=== PATIENT | female | born 1940 | race Caucasian/White ===

== ENCOUNTER 2019-05-03 04:38 | Inpatient (IN) | payer MEDICARE, OTHER ==
[~2019-05-03] VITALS: Ht 154.9 cm; Wt 96.8 kg
[2019-05-03 06:15] VITALS: BP 116/55
--- NOTE | 2019-05-03 06:15 | NUR ---
RAIL DETECTOR CAR OPERATOR NOTES RECEIVED REPORT FROM FABBY LEDEZMA AT [facility] AT 0450. PATIENT CAME FROM [facility]. PATIENT ARRIVED ON UNIT VIA AMBULANCE AT 0600. PATIENT IN STABLE CONDITION. A/O X 3. MAURITANIAN SPEAKING, BUT IS ABLE TO SPEAK A LITTLE MAURITIAN. ON 4L NC. NO S/S OF ACUTE RESPIRATORY DISTRESS AND NO COMPLAINTS OF PAIN AT THIS TIME. PATIENT PRESENTS WITH A LEFT LEG WOUND AND LEFT ARM WOUND. PATIENT STATES SHE FELL AT HOME. SKIN TEAR PRESENT ON LEFT BUTTOCKS. NO BELONGINGS WITH PATIENT. IV PRESENT ON RIGHT HAND, SIZE 24 & LEFT AC, SIZE 20, BOTH HEP LOCKED. VITAL SIGNS - BP: 116/55 HR: 127 RR: 20 TEMP: 98.5 SPO2: 98. AWAITING ADMISSION ORDERS. BED LOCKED, SEMI-SOLORZANO'S POSITION, SIDE RAILS X2, CALL LIGHT WITHIN REACH. WILL CONTINUE TO MONITOR.
--- NOTE | 2019-05-03 07:00 | NUR ---
MS/RN Opening Note Received patient in bed, AO x 4, able to responds all stimuli. Pt. is on oxygen via n/c, no respiratory distress observed at this time. Skin is warm to touch, kept lower bed position with elevated HOB. Call light within reach, will continue to monitor.
[2019-05-03] MEDS ORDERED: ZOLPIDEM TARTRATE 5 MG TABLET PO PRN (07:30)
[2019-05-03] MEDS ORDERED: Z GUARD REMEDY 2 OZ OINT TP PRN (07:30)
[2019-05-03] MEDS ORDERED: ACETAMINOPHEN 325 MG TABLET PO PRN (07:30)
[2019-05-03] MEDS ORDERED: MAG HYDROX/AL HYDROX/SIMETH 30 ML UDC PO PRN (07:30)
[2019-05-03] MEDS ORDERED: ONDANSETRON HCL/PF 4 MG/2 ML VIAL IVP PRN (07:30)
[2019-05-03] MEDS ORDERED: MAGNESIUM HYDROXIDE 30 ML UDC PO PRN (07:30)
--- NOTE | 2019-05-03 07:44 | NUR ---
MS RN CLOSING NOTES PATIENT AWAKE IN BED. A/O X4. ON 4L NC. NO S/S OF ACUTE RESPIRATORY DISTRESS AND NO COMPLAINTS OF PAIN AT THIS TIME. MRSA SWAB COMPLETED. PICTURES TAKEN AND PLACED IN CHART. BED LOCKED, SEMI-SOLORZANO'S POSITION, SIDE RAILS X2, CALL LIGHT WITHIN REACH. ADMISSION REPORT ENDORSED TO DAY SHIFT NURSE.
[2019-05-03 08:00] VITALS: BP 151/88
[2019-05-03] MEDS ORDERED: VALS1TAB52 PO (08:44)
[2019-05-03] MEDS ORDERED: PRED5TAB48 PO (08:44)
[2019-05-03] MEDS ORDERED: SULF500T3 PO (08:44)
[2019-05-03] MEDS ORDERED: FURO-144 PO (08:44)
[2019-05-03] MEDS ORDERED: TYL2T PO (08:44)
[2019-05-03] MEDS ORDERED: CHOL500052 PO (08:44)
[2019-05-03] MEDS ORDERED: VITA1TAB20 PO (08:44)
[2019-05-03] MEDS ORDERED: METO-295 PO (08:44)
[2019-05-03] MEDS ORDERED: METH2.5T PO (08:44)
[2019-05-03] MEDS ORDERED: ESOM40CA PO (08:44)
[2019-05-03] MEDS ORDERED: HYDR-4384 PO (08:44)
[2019-05-03] MEDS ORDERED: ESCI20TA PO (08:44)
[2019-05-03 08:54] LABS: BASOPHILS % (AUTO) 0.1 % (0.0-2.0); EOSINOPHILS % (AUTO) 0.1 % (0.0-6.0); HEMATOCRIT 24 % (33-45); HEMOGLOBIN 7.6 g/dL (11.5-14.8); LYMPHOCYTES # (AUTO) 0.2 /CMM (0.8-4.8); LYMPHOCYTES % (AUTO) 2.4 % (20.0-44.0); MEAN CORPUSCULAR HGB CONC 33 g/dl (31.0-36.0); MEAN CORPUSCULAR VOLUME 92 fL (82-100); MONOCYTES # (AUTO) 0.1 /CMM (0.1-1.30); MONOCYTES % (AUTO) 0.8 % (2.0-12.0); NEUTROPHILS % (AUTO) 96.6 % (43.0-81.0); PLATELET COUNT (AUTO) 233 /CMM (150-450); RED BLOOD CELL COUNT(AUTO) 2.57 MIL/uL (4.0-5.2); WHITE BLOOD COUNT (AUTO) 7.2 K/uL (4.3-11.0)
[2019-05-03 09:10] LABS: CALCIUM, SERUM 8.6 mg/dL (8.5-10.1); CARBON DIOXIDE 24 mmol/L (21-32); CHLORIDE 101 mmol/L (98-107); CREATININE 4.6 mg/dL (0.6-1.3); GLUCOSE 206 mg/dL (74-106); MAGNESIUM 2.8 mg/dL (1.8-2.4); POTASSIUM 6.1 mmol/L (3.5-5.1); SODIUM SERUM 136 mmol/L (136-145); UREA NITROGEN, BLOOD 63 mg/dL (7-18)
[2019-05-03] MEDS ORDERED: LEVOFLOXACIN 500 MG /D5W 100ML 500 MG in PREMIX 1 EA IV SCH (11:00)
[2019-05-03] MEDS ORDERED: FUROSEMIDE 100 MG/10 ML VIAL IV ONE (11:30)
[2019-05-03] MEDS ORDERED: METOCLOPRAMIDE HCL 10 MG TABLET PO PRN (12:30)
[2019-05-03] MEDS ORDERED: IV NS 0.9% 1,000 ML IV SCH (13:00)
[2019-05-03] MEDS ORDERED: SODIUM POLYSTYRENE SULFONATE 15 G/60 ML BOTTLE PO ONE (13:00)
[2019-05-03] MEDS ORDERED: FEE PK DOSING 1 MIN EA MC ONE (13:19)
[2019-05-03 13:44] LABS: ABG BASE EXCESS -4.5 mmol/L; ABG PCO2 32.6 mmHg (35.0-45.0); ABG PH 7.401 (7.350-7.450); ABG PO2 83.4 mmHg (75.0-100.0); AaDO2 164.3 mmHg; COHb 0.8 % (0.5-1.5); MetHb 1.2 % (0.0-1.5); O2Hb 93.1 % (94.0-97.0); SITE, ABG Left Brachial; VENT MODE, BG Nasal Cannula
[2019-05-03] MEDS: PIPERACILLIN /TAZOBACTAM 2.25 G in IV D5W 50 ML IV SCH ×2 (14:19→18:17)
[2019-05-03] MEDS ORDERED: VANCOMYCIN 1.25 GM in IV D5W 250 ML IV SCH (15:00)
[2019-05-03 16:00] VITALS: BP 130/74
[2019-05-03] MEDS: IPRATROPIUM NEB FS 0.5 MG/2.5 ML AMPUL.NEB NEB SCH ×2 (16:30→20:01)
[2019-05-03] MEDS: ALBUTEROL HALF STRENGTH 1.25 MG/3 ML VIAL.NEB NEB SCH ×2 (16:30→20:01)
[2019-05-03] MEDS: SULFASALAZINE 500 MG TABLET PO SCH (17:10)
[2019-05-03] MEDS: HYDROCODONE/APAP 5/325MG 1 EACH TABLET PO PRN (18:18)
--- NOTE | 2019-05-03 18:30 | NUR ---
MS/RN Closing note Patient in bed, done for US lower extremities and c/o generalized pain, given Narco 5/325mg. Skin is warm to touch, clean/dry. Resp. even and unlabored. Pt is on ATB but no s/s of adverse reaction observed. Call light within reach, will endorse night nurse.
--- NOTE | 2019-05-03 19:28 | NUR ---
MS RN OPENING NOTES Patient received resting in bed, awake a/o x4 Bengali speaking. Patient on 2L O2 via NC breathing even and unlabored, no SOB note. No signs of acute distress and no current complaints of pain or discomfort. IV located on L AC #20 patent and intact. Safety precautions in place with bed in lowest position, call light within reach, side rails up x2, and breaks on. Will continue to monitor.
[2019-05-03 20:00] VITALS: BP 116/63
--- NOTE | 2019-05-03 23:18 | NUR ---
MS RN NOTES MD NOTIFIED ABOUT ULTRASOUND RESULTS OF DVT IN MID RIGHT SUPERFICIAL; FEMORAL VEIN. WILL CONTINUE TO MONITOR.
[2019-05-03] MEDS: MEROPENEM 500 MG in IV NS 0.9% 50 ML IV SCH (23:22)
[2019-05-03] MEDS ORDERED: HEPARIN INFUSION/D5W 500 ML IV PRN (23:30)
--- NOTE | 2019-05-04 00:10 | NUR ---
MS RN NOTES MD ORDERED HEPARIN DRIP, CBC ORDERED STAT AND FECAL OCCULT STOOL. WILL CONTINUE TO MONITOR.
[2019-05-04 01:00] LABS: BASOPHILS % (AUTO) 0.1 % (0.0-2.0); LYMPHOCYTES # (AUTO) 0.5 /CMM (0.8-4.8); LYMPHOCYTES % (AUTO) 7.1 % (20.0-44.0); MEAN CORPUSCULAR HGB CONC 33 g/dl (31.0-36.0); MEAN CORPUSCULAR VOLUME 91 fL (82-100); MONOCYTES # (AUTO) 0.3 /CMM (0.1-1.30); MONOCYTES % (AUTO) 4.4 % (2.0-12.0); NEUTROPHILS # (AUTO) 6.2 /CMM (1.8-8.9); NEUTROPHILS % (AUTO) 88.4 % (43.0-81.0); PLATELET COUNT (AUTO) 225 /CMM (150-450); RED BLOOD CELL COUNT(AUTO) 2.23 MIL/uL (4.0-5.2)
[2019-05-04 01:05] LABS: HEMATOCRIT 20 % (33-45)
[2019-05-04 01:07] LABS: HEMOGLOBIN 6.7 g/dL (11.5-14.8)
[2019-05-04] MEDS: IPRATROPIUM NEB FS 0.5 MG/2.5 ML AMPUL.NEB NEB SCH ×4 (01:16→19:51)
[2019-05-04] MEDS: ALBUTEROL HALF STRENGTH 1.25 MG/3 ML VIAL.NEB NEB SCH ×4 (01:16→19:51)
--- NOTE | 2019-05-04 01:19 | NUR ---
MS RN NOTES CALLED BY LAB ABOUT CRITICAL VALUE OF HGB 6.7 REPORTED BY LAI. LINDY NOTIFIED- CANCELLED HEPARIN DRIP, HOLD ANTICOAGULANTS, CONTINUE TO MONITOR AND SEE IF LABS IMPROVE IN THE MORNING.
[2019-05-04 01:31] LABS: LYMPHOCYTES % (MANUAL) 4 % (16-48); NEUTROPHILS % (MANUAL) 94 (42-76)
[2019-05-04 01:32] LABS: MONOCYTES % (MANUAL) 2 % (0-11.0)
[2019-05-04] MEDS: PANTOPRAZOLE 40 MG VIAL IV SCH ×2 (04:05→22:01)
--- NOTE | 2019-05-04 06:43 | NUR ---
MS RN CLOSING NOTES PATIENT IS CURRENTLY RESTING IN BED A/O X4, LITHUANIAN SPEAKING BUT ABLE TO MAKE NEEDS KNOWN. PATIENT ON 3L O2 VIA NC WITH BREATHIGN EVEN AND UNLABORED. NO SIGNS OF ACUTE DISTRESS. NO COMPLAINTS OF PAIN OR DISCOMFORT. IV LOCATED ON R HAND #24 AND L AC #20, PATENT AND INTACT. ALL NEEDS WERE MET THROUGHOUT THE NIGHT. PATIENT WAS KEPT CLEAN AND DRY. SAFETY PRECAUTIONS IN PLACE WITH BED IN LOWEST POSITION, CALL LIGHT WITHIN REACH, BREAKS ON, AND SIDE RAILS UP X2. WILL ENDORSE TO ONCOMING SHIFT ABOUT BIANCA.
[2019-05-04 06:53] LABS: CHOLESTEROL 116 mg/dL (<200); CREATINE KINASE, TOTAL 68 U/L (26-192); HDL CHOLESTEROL 42 mg/dL (40-60); LDL 70 mg/dL (0-99); TRIGLYCERIDES 84 mg/dL (30-150)
[2019-05-04 07:00] LABS: ALANINE AMINOTRANSFERASE 15 U/L (12-78); ALBUMIN 2.2 g/dL (3.4-5.0); ALKALINE PHOSPHATASE 50 U/L (46-116); ASPARTATE AMINOTRANSFERASE 17 U/L (15-37); BILIRUBIN,TOTAL 0.3 mg/dL (0.2-1.0); CARBON DIOXIDE 25 mmol/L (21-32); CHLORIDE 102 mmol/L (98-107); CREATININE 4.7 mg/dL (0.6-1.3); GLUCOSE 141 mg/dL (74-106); MAGNESIUM 2.9 mg/dL (1.8-2.4); PHOSPHORUS 7.7 mg/dL (2.5-4.9); POTASSIUM 5.2 mmol/L (3.5-5.1); SODIUM SERUM 138 mmol/L (136-145); TOTAL PROTEIN, SERUM 5.9 g/dL (6.4-8.2); UREA NITROGEN, BLOOD 71 mg/dL (7-18)
[2019-05-04 07:13] LABS: BASOPHILS % (AUTO) 0.1 % (0.0-2.0); LYMPHOCYTES # (AUTO) 0.7 /CMM (0.8-4.8); LYMPHOCYTES % (AUTO) 8.5 % (20.0-44.0); MEAN CORPUSCULAR HGB CONC 33 g/dl (31.0-36.0); MEAN CORPUSCULAR VOLUME 91 fL (82-100); MONOCYTES # (AUTO) 0.5 /CMM (0.1-1.30); MONOCYTES % (AUTO) 5.7 % (2.0-12.0); NEUTROPHILS # (AUTO) 7.4 /CMM (1.8-8.9); NEUTROPHILS % (AUTO) 85.7 % (43.0-81.0); PLATELET COUNT (AUTO) 222 /CMM (150-450); RED BLOOD CELL COUNT(AUTO) 2.09 MIL/uL (4.0-5.2); WHITE BLOOD COUNT (AUTO) 8.6 K/uL (4.3-11.0)
--- NOTE | 2019-05-04 07:17 | NUR ---
Nurse Notes: report from the night nurse Deanna Giles RN, received patient resting in bed, c/o pain 07/29. In no respiratory distress.
[2019-05-04] MEDS ORDERED: PANTOPRAZOLE 40 MG TABLET.DR PO SCH (07:30)
[2019-05-04 07:40] LABS: HEMATOCRIT 19 % (33-45); HEMOGLOBIN 6.2 g/dL (11.5-14.8)
[2019-05-04 08:00] VITALS: BP 111/69
[2019-05-04] MEDS ORDERED: ACETAMINOPHEN 325 MG TABLET PO PRN (08:00)
[2019-05-04] MEDS ORDERED: diphenhydrAMINE HCL 50 MG/ML VIAL IV PRN (08:00)
[2019-05-04 08:24] LABS: LYMPHOCYTES % (MANUAL) 8 % (16-48); MONOCYTES % (MANUAL) 9 % (0-11.0); NEUTROPHILS % (MANUAL) 83 (42-76)
[2019-05-04] MEDS: SULFASALAZINE 500 MG TABLET PO SCH (09:00)
[2019-05-04] MEDS ORDERED: METHOTREXATE SODIUM (2.5MG) 2.5 MG TABLET PO SCH ×2 (09:00)
--- NOTE | 2019-05-04 09:20 | NUR ---
Nurse Notes: type and cross just completed, phlebotomuist just aishwarya the blood. patient was stuck twice, waiting for unit of PRBCs to be processed.
[2019-05-04] MEDS: HYDROCODONE/APAP 5/325MG 1 EACH TABLET PO PRN (09:56)
[2019-05-04] MEDS: ESCITALOPRAM OXALATE (10 MG) 10 MG TABLET PO SCH (09:57)
[2019-05-04] MEDS: predniSONE 5 MG TABLET PO SCH (09:57)
[2019-05-04] MEDS: VITAMIN B COMP W-C 1 TAB TABLET PO SCH (09:57)
--- NOTE | 2019-05-04 11:21 | NUR ---
WOUND CARE CONSULT: PT PRESENTS WITH OPEN BLISTER TO LEFT BUTTOCK AND WOUNDS, DISCOLORED AREAS TO LEFT LOWER EXTREMITY, PRESENT ON ADMISSION. RECOMMENDATIONS MADE FOR SKIN PROTECTION. DISCUSSED WITH NURSING STAFF. RECOMMEND DPM AND SURGICAL CONSULTS. DR ROMAN NOTIFIED OF CONSULT REQUESTS. PT IS ON VALE ISOFLEX LOW AIRLOSS BED. WILL SEE PRN. MENDEZ IN AGREEMENT WITH PLAN OF CARE. CURRENT ELE SCORE IS 16. Addendum: 05/04/19 at 1123 by SHERRY STEWARD WNDNU Amended: Links added.
[2019-05-04 12:45] VITALS: BP 105/90
[2019-05-04 13:10] LABS: APPEARANCE,URINE SL CLOUDY (CLEAR); BILIRUBIN,URINE NEGATIVE (NEGATIVE); BLOOD, URINE LARGE Ery/uL (NEGATIVE); COLOR,URINE YELLOW (YELLOW); KETONES,URINE NEGATIVE (NEGATIVE); LEUKOCYTE ESTERASE ,URINE NEGATIVE (NEGATIVE); NITRITE, URINE NEGATIVE (NEGATIVE); PROTEIN,URINE 100 mg/dl (NEGATIVE); UGLUCOSE NEGATIVE (NEGATIVE); UROBILINOGEN,URINE 0.2 EU/dL (0.2)
[2019-05-04 13:21] LABS: CREATININE, URINE 51.3 MG/DL (30.0-125.0); URINE TOTAL PROTEIN 104.7 mg/dL (0-11.9)
[2019-05-04 13:23] LABS: BACTERIA,URINE Moderate /HPF (None Seen); SQUAMOUS EPITHELIAL CELL,UR Moderate /HPF (None Seen)
[2019-05-04 13:24] LABS: WBC,URINE 0-2 /HPF (0-3)
[2019-05-04 13:37] LABS: EOSINOPHIL,URINE None Seen
--- NOTE | 2019-05-04 13:50 | NUR ---
Nurse Notes: Micro biology stated there is no sputum in lab to run gram stain. patient needs to give specimen. dry cough, will give patient sputum container.
[2019-05-04 14:26] VITALS: BP 120/65
[2019-05-04] MEDS: SILVER SULFADIAZINE 50 GM JAR TP SCH (14:54)
[2019-05-04] MEDS: SILVER SULFADIAZINE CREAM 25 GM TUBE TP SCH (14:55)
--- NOTE | 2019-05-04 15:15 | NUR ---
Nurse Notes: Sulfasalazine 50 mg was not in the omnicell, also check patient cassette. Pharmacy was called, stated it in the [facility]. will enter dose for today as single dose.
[2019-05-04 15:50] LABS: OCCULT BLOOD STOOL NEGATIVE (NEGATIVE)
[2019-05-04 16:00] VITALS: BP 120/68
[2019-05-04] MEDS ORDERED: SULFASALAZINE 500 MG TABLET PO ONE (16:30)
--- NOTE | 2019-05-04 16:58 | NUR ---
Nurse Notes: Kevin Hogan called and asking old record Kevin Hogan [facility], spoke with the Nursing Watch Dial Maker, will fax the old records at [facility], fax number given to her. patient was at [facility] for 6 days
--- NOTE | 2019-05-04 19:25 | NUR ---
MS RN OPENING NOTES RECEIVED PATIENT FROM MORNING SHIFT ALERT AND ORIENTED X 3. FAMILY ON BEDSIDE. VERBALLY RESPONSIVE CITIZEN OF [place] SPEAKING AND ABLE TO FOLLOW DIRECTIONS. BREATHING REGULAR AND UNLABORED ON OXYGEN AT 2L/min VIA NASAL CANNULA. LEFT AC G20 AND RIGHT HAND G24 IV LINES PATENT AND INTACT, FLUSHING/INFUSING WELL WITH NO BLEEDING OR S/S OF INFECTION/INFILTRATION NOTED. NO COMPLAINTS OF PAIN/DISCOMFORT REPORTED OF THE TIME. BED LOW AND LOCKED ON SEMI FOWLERS POSITION. CALL LIGHT IN REACH. WILL CONTINUE TO MONITOR.
--- NOTE | 2019-05-04 19:30 | NUR ---
Nurse Notes: report given to day [facility] nurse Tasneem Summers RN. LYUBOV munroe coming to do the VQ scan. Consent for Pulmonary Perfusion with contrast and without contrast signed by patient, granddaughter Kimi spoke to Dr Almaraz regarding chest scan.
[2019-05-04 19:42] LABS: THYROID STIMULATING HORMONE 11.986 uIU/mL (0.358-3.74)
[2019-05-04] MEDS: FOLIC ACID 1 MG TABLET PO SCH (19:42)
--- NOTE | 2019-05-04 20:20 | NUR ---
MS RN NOTES PICKED-UP BY VANESSA FROM [facility]PT. FOR V/Q SCAN TO R/O PULMONARY EMBOLISM. REMAINED ALERT AND ORIENTED X 3 WITH STABLE VITAL SIGNS LATEST SP02 95%. TRANSFERRED VIA HOSPITAL BED.
[2019-05-04 20:43] VITALS: BP 128/70
[2019-05-04 22:00] VITALS: BP 128/70
--- NOTE | 2019-05-04 22:00 | NUR ---
MS RN NOTES CAME BACK FROM VQ SCAN WITH STABLE CONDITION. REMAINED ALERT AND ORIENTED X 3. NO COMPLAINTS OF PAIN/DISCOMFORT REPORTED. WILL CONTINUE TO MONITOR.
[2019-05-05] MEDS: MEROPENEM 500 MG in IV NS 0.9% 50 ML IV SCH (00:33)
[2019-05-05] MEDS: IPRATROPIUM NEB FS 0.5 MG/2.5 ML AMPUL.NEB NEB SCH ×4 (01:47→20:19)
[2019-05-05] MEDS: ALBUTEROL HALF STRENGTH 1.25 MG/3 ML VIAL.NEB NEB SCH ×4 (01:47→20:19)
--- NOTE | 2019-05-05 06:30 | NUR ---
MS RN CLOSING NOTES PATIENT IN BED ALERT AND ORIENTED X 3.VERBALLY RESPONSIVE GEORGIAN/[place] LANK[place] SPEAKING AND ABLE TO FOLLOW DIRECTIONS. BREATHING REGULAR AND UNLABORED ON OXYGEN AT 2L/min VIA NASAL CANNULA. LEFT AC G20 AND RIGHT HAND G24 IV LINES PATENT AND FLUSHING WELL. NO COMPLAINTS OF PAIN/DISCOMFORT REPORTED THE WHOLE SHIFT. WOUND TREATMENTS PROVIDED. ON IV ATB WITH NO ADVERSE REACTIONS NOTED. BED LOW AND LOCKED ON SEMI FOWLERS POSITION. CALL LIGHT IN REACH. WILL ENDORSE TO MORNING SHIFT FOR BIANCA.
--- NOTE | 2019-05-05 07:30 | NUR ---
RN OPENING NOTES RECEIVED PATIENT IN BED RESTING. NOT IN ANY FORM OF DISTRESS. NO SOB. NO S/S OF PAIN OR DISCOMFORT AT THIS TIME. IV ACCESS INTACT AND PATENT. KEPT PATIENT SAFE AND COMFORTABLE. BED IN LOW/LOCKED POSITION SIDERAILS UPX2, CALL LIGHT IN REACH. WILL CONT TO MONITOR ACCORDINGLY.
[2019-05-05 07:41] LABS: BASOPHILS % (AUTO) 0.3 % (0.0-2.0); EOSINOPHILS % (AUTO) 1.3 % (0.0-6.0); HEMATOCRIT 22 % (33-45); LYMPHOCYTES # (AUTO) 1.3 /CMM (0.8-4.8); LYMPHOCYTES % (AUTO) 13.2 % (20.0-44.0); MEAN CORPUSCULAR HGB CONC 32 g/dl (31.0-36.0); MEAN CORPUSCULAR VOLUME 92 fL (82-100); MONOCYTES # (AUTO) 0.7 /CMM (0.1-1.30); MONOCYTES % (AUTO) 6.8 % (2.0-12.0); NEUTROPHILS # (AUTO) 7.9 /CMM (1.8-8.9); NEUTROPHILS % (AUTO) 78.4 % (43.0-81.0); PLATELET COUNT (AUTO) 254 /CMM (150-450); RED BLOOD CELL COUNT(AUTO) 2.34 MIL/uL (4.0-5.2)
[2019-05-05 08:00] VITALS: BP 138/70
[2019-05-05 08:03] LABS: CREATINE KINASE, TOTAL 70 U/L (26-192)
[2019-05-05] MEDS: SULFASALAZINE 500 MG TABLET PO SCH (08:27)
[2019-05-05] MEDS: ESCITALOPRAM OXALATE (10 MG) 10 MG TABLET PO SCH (08:27)
[2019-05-05] MEDS: FOLIC ACID 1 MG TABLET PO SCH (08:27)
[2019-05-05] MEDS: VITAMIN B COMP W-C 1 TAB TABLET PO SCH (08:27)
[2019-05-05] MEDS: predniSONE 5 MG TABLET PO SCH (08:27)
[2019-05-05] MEDS: SILVER SULFADIAZINE CREAM 25 GM TUBE TP SCH (08:31)
[2019-05-05] MEDS: PANTOPRAZOLE 40 MG VIAL IV SCH ×2 (08:31→21:42)
[2019-05-05 08:53] LABS: ALANINE AMINOTRANSFERASE 14 U/L (12-78); ALBUMIN 2.3 g/dL (3.4-5.0); ALKALINE PHOSPHATASE 52 U/L (46-116); ASPARTATE AMINOTRANSFERASE 21 U/L (15-37); BILIRUBIN,TOTAL 0.3 mg/dL (0.2-1.0); CALCIUM, SERUM 7.6 mg/dL (8.5-10.1); CARBON DIOXIDE 22 mmol/L (21-32); CHLORIDE 101 mmol/L (98-107); CREATININE 4.7 mg/dL (0.6-1.3); GLUCOSE 95 mg/dL (74-106); MAGNESIUM 2.8 mg/dL (1.8-2.4); POTASSIUM 5.1 mmol/L (3.5-5.1); SODIUM SERUM 138 mmol/L (136-145); TOTAL PROTEIN, SERUM 6.1 g/dL (6.4-8.2); UREA NITROGEN, BLOOD 69 mg/dL (7-18)
[2019-05-05 09:08] LABS: PHOSPHORUS 8.9 mg/dL (2.5-4.9)
[2019-05-05] MEDS ORDERED: EPOETIN ALFA (20,000 UNIT) 20,000 UNIT/ML VIAL SQ ONE (12:00)
[2019-05-05] MEDS: SEVELAMER CARBONATE 800 MG TABLET PO SCH ×2 (12:37→18:01)
[2019-05-05] MEDS ORDERED: VANCOMYCIN 1.25 GM in IV D5W 250 ML IV SCH (15:00)
[2019-05-05 16:00] VITALS: BP 138/64
--- NOTE | 2019-05-05 19:29 | NUR ---
RN CLOSING NOTES PATIENT IN STABLE CONDITION. ALL NEEDS ATTENDED AND PROVIDED. ALL DUE MEDS GIVEN ORDERED. TURNED AND REPOSITIONED EVERY 2HRS NEEDED. KEPT PATIENT SAFE AND COMFORTABLE. BED IN LOW/LOCKED POSITION, SIDERAILS UPX2,C ALL LIGHT IN REACH. ENDORSED TO NIGHT RN FOR BIANCA.
--- NOTE | 2019-05-05 19:30 | NUR ---
MS RN NOTES RECEIVED ON BED A/O X3,SAO TOMEAN SPEAKING,OBESE,NO IV ACCESS, HARD STICK,NOTED LEFT LOWER ARM IN CAST DUE TO FRACTURE.WITH SLIGHT REDNESS ON RIGHT LEG,POSITIVE DVT ON RIGHT FEMORAL VEIN.WILL CONTINUE TO MONITOR STATUS.
--- NOTE | 2019-05-05 19:45 | NUR ---
MS RN NOTES NEW SALINE LOCK INSERTED ON RIGHT FORE ARM #20,IV ABX INFUSING AT THIS TIME.
[2019-05-05 20:00] VITALS: BP 115/67
--- NOTE | 2019-05-06 | NUR ---
MS RN NOTES IV FERNANDA LEE,INFUSING VIA IV PUMP ON RIGHT FOREARM SALINE LOCK
[2019-05-06] MEDS: MEROPENEM 500 MG in IV NS 0.9% 50 ML IV SCH ×2 (00:08→23:49)
[2019-05-06] MEDS: IPRATROPIUM NEB FS 0.5 MG/2.5 ML AMPUL.NEB NEB SCH ×4 (02:23→20:16)
[2019-05-06] MEDS: ALBUTEROL HALF STRENGTH 1.25 MG/3 ML VIAL.NEB NEB SCH ×4 (02:23→20:16)
[2019-05-06 06:07] LABS: *SPE A/G RATIO 0.8 (0.7-1.7); *SPE ALBUMIN 2.4 g/dL (2.9-4.4); *SPE ALPHA-1-GLOBULIN 0.4 g/dL (0.0-0.4); *SPE ALPHA-2-GLOBULIN 0.7 g/dL (0.4-1.0); *SPE BETA GLOBULIN 0.8 g/dL (0.7-1.3); *SPE M-SPIKE 0.6 g/dL (Not Observed); *SPEGAMMA GLOBULIN 1.1 g/dL (0.4-1.8)
--- NOTE | 2019-05-06 06:33 | NUR ---
MS RN NOTES SLEPT WELL.IV ABX TOLERATED WELL.NO DISTRESS.WILL ENDORSE TO DAY NURSE FOR BIANCA.
[2019-05-06 08:00] VITALS: BP 122/70
--- NOTE | 2019-05-06 08:00 | NUR ---
ms rn received on bed, awake,alert,oriented x2-3,not in any form of distress,respirations even and unlabored,no sob noted, lungs are clear,abdomen soft,positive bowel sounds,denies pain at this time,all needs attended.
[2019-05-06 08:30] LABS: CALCIUM, SERUM 7.5 mg/dL (8.5-10.1); CARBON DIOXIDE 25 mmol/L (21-32); CHLORIDE 101 mmol/L (98-107); CREATININE 4.6 mg/dL (0.6-1.3); GLUCOSE 95 mg/dL (74-106); POTASSIUM 4.8 mmol/L (3.5-5.1); SODIUM SERUM 137 mmol/L (136-145); UREA NITROGEN, BLOOD 66 mg/dL (7-18)
[2019-05-06] MEDS: SILVER SULFADIAZINE CREAM 25 GM TUBE TP SCH (09:00)
--- NOTE | 2019-05-06 09:50 | NUR ---
ms castillo breakfast served,due meds given,tolerated well.
--- NOTE | 2019-05-06 10:00 | NUR ---
ms anna was seen by michael fulton/ orders made and carried out.
[2019-05-06] MEDS: SEVELAMER CARBONATE 800 MG TABLET PO SCH ×3 (10:21→18:43)
[2019-05-06] MEDS: PANTOPRAZOLE 40 MG VIAL IV SCH ×2 (10:21→21:03)
[2019-05-06] MEDS: FOLIC ACID 1 MG TABLET PO SCH (10:22)
[2019-05-06] MEDS: ESCITALOPRAM OXALATE (10 MG) 10 MG TABLET PO SCH (10:22)
[2019-05-06] MEDS: VITAMIN B COMP W-C 1 TAB TABLET PO SCH (10:22)
[2019-05-06] MEDS: SILVER SULFADIAZINE 50 GM JAR TP SCH (10:26)
[2019-05-06] MEDS: SULFASALAZINE 500 MG TABLET PO SCH (12:39)
[2019-05-06] MEDS: predniSONE 5 MG TABLET PO SCH (12:39)
--- NOTE | 2019-05-06 14:50 | NUR ---
ms rn texted michael fulton due to patient is degrading w/ orders made and carried out.
[2019-05-06] MEDS: HYDROCODONE/APAP 5/325MG 1 EACH TABLET PO PRN ×2 (15:06→23:09)
[2019-05-06 16:00] VITALS: BP 134/52
--- NOTE | 2019-05-06 18:00 | NUR ---
ms rn [id number] abg result, normal.
[2019-05-06 18:03] LABS: ABG OXYGEN SATURATION 96.5 % (92.0-98.5); ABG PCO2 44.9 mmHg (35.0-45.0); ABG PH 7.342 (7.350-7.450); ABG PO2 99.3 mmHg (75.0-100.0); AaDO2 76.3 mmHg; COHb 0.1 % (0.5-1.5); MetHb 0.7 % (0.0-1.5); O2Hb 95.7 % (94.0-97.0); SITE, ABG Right Radial; VENT MODE, BG 3LPM VIA NC
--- NOTE | 2019-05-06 18:05 | NUR ---
ms rn on bed, no distress noted.
--- NOTE | 2019-05-06 19:30 | NUR ---
MS RN NOTES ON BED A/O X3,BREATHING NON LABORED,O2 IN USED AT 2L/NC,SALINE LOCK RIGHT FOREARM INTACT AND PATENT.LEFT LOWER DRESSING INTACT AND PATENT.C/O ABDOMINAL CRAMPS,WAS MEDICATED BY DAY NURSE WITH MILK OF MAGNESIA FOR CONSTIPATION.CALL LIGHT IN REACH,NEEDS ANTICIPATED.
[2019-05-06 20:00] VITALS: BP 134/68
--- NOTE | 2019-05-06 23:09 | NUR ---
MS RN NOTES PAIN MANAGEMENT C/O PAIN LEFT LOWER ABDOMEN,6/10 ON PAIN SCALE.MEDICATED WITH NORCO 5/325MG,1 TAB PO ORDERED.
--- NOTE | 2019-05-07 01:00 | NUR ---
MS RN NOTES SLEEPING,KEPT WARM AND COMFORTABLE.
[2019-05-07] MEDS: IPRATROPIUM NEB FS 0.5 MG/2.5 ML AMPUL.NEB NEB SCH ×3 (02:12→13:31)
[2019-05-07] MEDS: ALBUTEROL HALF STRENGTH 1.25 MG/3 ML VIAL.NEB NEB SCH ×3 (02:12→13:31)
--- NOTE | 2019-05-07 06:23 | NUR ---
MS RN NOTES SLEPT WELL WITH INTERVALS.PAIN MANAGEMENT EFFECTIVE.IN NO ACUTE DISTRESS.WILL ENDORSE TO DAY NURSE FOR BIANCA.
[2019-05-07 07:06] LABS: *SPE A/G RATIO 0.8 (0.7-1.7); *SPE ALBUMIN 2.5 g/dL (2.9-4.4); *SPE ALPHA-1-GLOBULIN 0.4 g/dL (0.0-0.4); *SPE ALPHA-2-GLOBULIN 0.7 g/dL (0.4-1.0); *SPE BETA GLOBULIN 0.7 g/dL (0.7-1.3); *SPE M-SPIKE 0.6 g/dL (Not Observed); *SPEGAMMA GLOBULIN 1.2 g/dL (0.4-1.8)
[2019-05-07 08:00] VITALS: BP 129/90
--- NOTE | 2019-05-07 08:00 | NUR ---
m/s business account leader: initial assessment received pt in bed awake, a/ox3; lebanese speaking only. no c/o pain or any discomfort. instructed to call for assistance.
[2019-05-07] MEDS: ESCITALOPRAM OXALATE (10 MG) 10 MG TABLET PO SCH (08:08)
[2019-05-07] MEDS: VITAMIN B COMP W-C 1 TAB TABLET PO SCH (08:08)
[2019-05-07] MEDS: predniSONE 5 MG TABLET PO SCH (08:08)
[2019-05-07] MEDS: SULFASALAZINE 500 MG TABLET PO SCH (08:08)
[2019-05-07] MEDS: FOLIC ACID 1 MG TABLET PO SCH (08:08)
[2019-05-07] MEDS: SEVELAMER CARBONATE 800 MG TABLET PO SCH ×2 (08:09→13:28)
[2019-05-07] MEDS: SILVER SULFADIAZINE CREAM 25 GM TUBE TP SCH (08:10)
[2019-05-07] MEDS: SILVER SULFADIAZINE 50 GM JAR TP SCH (08:12)
[2019-05-07 08:28] LABS: BASOPHILS % (AUTO) 0.3 % (0.0-2.0); CALCIUM, SERUM 8.2 mg/dL (8.5-10.1); CARBON DIOXIDE 26 mmol/L (21-32); CHLORIDE 103 mmol/L (98-107); CREATININE 4.4 mg/dL (0.6-1.3); GLUCOSE 96 mg/dL (74-106); HEMATOCRIT 23 % (33-45); HEMOGLOBIN 7.5 g/dL (11.5-14.8); LYMPHOCYTES # (AUTO) 1.2 /CMM (0.8-4.8); LYMPHOCYTES % (AUTO) 11.2 % (20.0-44.0); MAGNESIUM 2.9 mg/dL (1.8-2.4); MEAN CORPUSCULAR HGB CONC 32 g/dl (31.0-36.0); MEAN CORPUSCULAR VOLUME 92 fL (82-100); MONOCYTES # (AUTO) 0.5 /CMM (0.1-1.30); MONOCYTES % (AUTO) 4.7 % (2.0-12.0); NEUTROPHILS % (AUTO) 80.8 % (43.0-81.0); PHOSPHORUS 7.5 mg/dL (2.5-4.9); PLATELET COUNT (AUTO) 228 /CMM (150-450); POTASSIUM 5.4 mmol/L (3.5-5.1); RED BLOOD CELL COUNT(AUTO) 2.54 MIL/uL (4.0-5.2); SODIUM SERUM 139 mmol/L (136-145); UREA NITROGEN, BLOOD 61 mg/dL (7-18); WHITE BLOOD COUNT (AUTO) 11.1 K/uL (4.3-11.0)
[2019-05-07] MEDS: PANTOPRAZOLE 40 MG VIAL IV SCH (09:06)
--- NOTE | 2019-05-07 10:00 | NUR ---
m/s fine grade operator: notes am care rendered by risk lead. tx done to left buttock wound, wound improving. wound care rendered to left leg/knee area.
[2019-05-07] MEDS ORDERED: SODIUM POLYSTYRENE SULFONATE 15 G/60 ML BOTTLE PO ONE (13:30)
--- NOTE | 2019-05-07 13:35 | NUR ---
m/s stretcher leveler operator: notes daughter here visiting and informed her that pt is being discharge today with home health. daughter wants ambulance to take her. jackelyn (case management) notified and made aware. daughter provided the address and spoke to jackelyn. pt made aware. pt c/o itchiness. dr. rodriguez notified with one time order of benadry 25mg po. order read back and carried out. will continue to monitor.
[2019-05-07] MEDS ORDERED: VANCOMYCIN 1.25 GM in IV D5W 250 ML IV SCH (14:00)
[2019-05-07] MEDS ORDERED: diphenhydrAMINE HCL 25 MG CAPSULE PO ONE (14:00)
--- NOTE | 2019-05-07 14:00 | NUR ---
m/s cooker soda: notes wound care rendered to left lower leg/calf and medial knee area. also tx done to left buttock wound. will continue to monitor.
--- NOTE | 2019-05-07 15:00 | NUR ---
m/s energy projects lead: notes discharge instructions with [facility] speaking staff translating given to daughter and verbalized understanding. home health has been arrange by jackelyn (case management), but daughter wants her own. jackelyn (willard) at bedside and will call pt's home health. ambulance to lemon picker the pt at 1600. pt and daughter aware.
--- NOTE | 2019-05-07 16:45 | NUR ---
m/s architectural associate: notes f/u made to jackelyn (willard) re: ambulance scrap picker for 1600. per jackelyn (willard), ambulance will be here in 15 mins. pt and daughter made aware.
--- NOTE | 2019-05-07 16:50 | NUR ---
m/s materials engineer: id f/u seen by tatiana (powder guard, id) with no new order. powder guard aware that pt is for discharge, no need for antibiotic as stated.
--- NOTE | 2019-05-07 17:05 | NUR ---
m/s rehabilitation center manager: notes ambulance here and report given to one of the crew. h/l removed with tip intact.
--- NOTE | 2019-05-07 17:12 | NUR ---
m/s pocket marker: discharged discharged via ambulance in stable condition accompanied by 2 crew and daughter to meet them at the house.
[2019-05-09] MEDS ORDERED: METHOTREXATE SODIUM (2.5MG) 2.5 MG TABLET PO SCH (09:00)
[2019-05-09] MEDS ORDERED: ERGOCALCIFEROL (VITAMIN D 2) 50,000 UNIT CAPSULE PO SCH (09:00)
== END 2019-05-07 17:10 | disposition home health service (06) | DRG 720 ==
LOC: MED 05:55
PROVIDERS: ADMIT Internal Medicine; ATTEND Internal Medicine
DX: A41.9 Sepsis, unspecified organism (principal); J96.01 Acute respiratory failure with hypoxia; N17.0 Acute kidney failure with tubular necrosis; E43 Unspecified severe protein-calorie malnutrition; G93.41 Metabolic encephalopathy; J18.9 Pneumonia, unspecified organism; E11.22 Type 2 diabetes mellitus with diabetic chronic kidney disease; I82.411 Acute embolism and thrombosis of right femoral vein; E11.51 Type 2 diabetes mellitus with diabetic peripheral angiopathy without gangrene; E66.01 Morbid (severe) obesity due to excess calories; N25.0 Renal osteodystrophy; I13.0 Hypertensive heart and chronic kidney disease with heart failure and stage 1 through stage 4 chronic kidney disease, or unspecified chronic kidney disease; D64.9 Anemia, unspecified; S62.102A Fracture of unspecified carpal bone, left wrist, initial encounter for closed fracture; I50.9 Heart failure, unspecified; E87.5 Hyperkalemia; F32.9 Major depressive disorder, single episode, unspecified; M19.90 Unspecified osteoarthritis, unspecified site; N18.9 Chronic kidney disease, unspecified; R65.20 Severe sepsis without septic shock; E83.39 Other disorders of phosphorus metabolism; E78.5 Hyperlipidemia, unspecified; E83.41 Hypermagnesemia; G47.33 Obstructive sleep apnea (adult) (pediatric); M06.9 Rheumatoid arthritis, unspecified; M20.41 Other hammer toe(s) (acquired), right foot; M20.42 Other hammer toe(s) (acquired), left foot; M81.0 Age-related osteoporosis without current pathological fracture; L97.529 Non-pressure chronic ulcer of other part of left foot with unspecified severity; J98.11 Atelectasis; I70.0 Atherosclerosis of aorta; E11.621 Type 2 diabetes mellitus with foot ulcer; S80.222A Blister (nonthermal), left knee, initial encounter; S80.822A Blister (nonthermal), left lower leg, initial encounter; E78.00 Pure hypercholesterolemia, unspecified; Z68.41 Body mass index [BMI] 40.0-44.9, adult; Z88.0 Allergy status to penicillin; Z86.718 Personal history of other venous thrombosis and embolism; Z79.83 Long term (current) use of bisphosphonates; Z79.82 Long term (current) use of aspirin; W01.0XXA Fall on same level from slipping, tripping and stumbling without subsequent striking against object, initial encounter; Y92.9 Unspecified place or not applicable; Z86.19 Personal history of other infectious and parasitic diseases
CPT/HCPCS: 36415; 36600; 71045-TC; 71250-TC; 73110; 76770-TC; 78582; 80048-TC; 80053-TC; 80061-TC; 80202-TC; 81000-TC; 82272-TC; 82550-TC; 82570-TC; 82728-TC; 82803-TC; 83540-TC; 83735-TC; 83970; 84100-TC; 84155; 84155-TC; 84165; 84300-TC; 84439-TC; 84443-TC; 85025-TC; 86850-TC; 86921-TC; 87070-TC; 87081-TC; 87086-TC; 93307-TC; 93970-TC; 94799-TC; A4216; A6253; A6403; A9540; A9567; C9113; G0378; J0885; J1940; J1956; J2185; J2405; J2543; J3370; J7050; J7060; J7512; J8610; Q0163